=== PATIENT | female | born 1950 | race Caucasian/White ===

== ENCOUNTER 2019-05-04 22:07 | Emergency (ER) | payer BC, OTHER ==
[~2019-05-04] VITALS: Ht 162.6 cm; Wt 70.8 kg
[2019-05-04] MEDS ORDERED: TOPROL XL25 MG PO (22:58)
[2019-05-04] MEDS ORDERED: XARELTO20 MG PO (22:58)
[2019-05-04] MEDS ORDERED: SYNTHROID88 MCG PO (22:58)
[2019-05-04] MEDS ORDERED: PHENERGAN 25 MG25 M1 (23:00)
[2019-05-04] MEDS ORDERED: ZOLMITRIPTAN2.5 MG PO (23:01)
[2019-05-04] MEDS ORDERED: TRAMADOL 50 MG50 MG (23:01)
[2019-05-05 00:30] VITALS: BP 146/80
== END 2019-05-05 00:30 | disposition home or self-care (01) ==
LOC: ER 22:07
DX: M25.571 Pain in right ankle and joints of right foot (principal); Z88.5 Allergy status to narcotic agent; Z88.1 Allergy status to other antibiotic agents